=== PATIENT | male | born 1970 | race Caucasian/White ===

== ENCOUNTER 2018-06-11 20:17 | Inpatient (IN) | payer MEDICAID, OTHER ==
[2018-06-11 20:32] LABS: ADD MAN DIFF? NO
[2018-06-11 20:34] LABS: WHITE BLOOD COUNT 9.4 10^3/ul (4.8-10.8)
[2018-06-11 20:34] LABS: BASOPHIL # 0.1 10^3/ul (0.0-0.1); BASOPHILS % 0.7 % (0.0-2.0); EOSINOPHILS # 0.6 10^3/ul (0.0-0.5); EOSINOPHILS % 6.8 % (0.0-7.0); HEMATOCRIT 34.1 % (42.0-52.0); HEMOGLOBIN 12.3 g/dl (14.0-18.0); LYMPHOCYTES # 2.4 10^3/ul (0.8-2.9); LYMPHOCYTES % 25.3 % (15.0-51.0); MEAN CORPUSCULAR HEMOGLOBIN 31.3 pg (29.0-33.0); MEAN CORPUSCULAR HGB CONC 36.1 g/dl (32.0-37.0); MEAN CORPUSCULAR VOLUME 86.8 fl (82.0-101.0); MEAN PLATELET VOLUME 9.1 fl (7.4-10.4); MONOCYTE # 0.7 10^3/ul (0.3-0.9); NEUTROPHIL # 5.6 10^3/ul (1.6-7.5); NEUTROPHILS % 59.6 % (39.0-77.0); PLATELET COUNT 341 10^3/UL (140-415); RED BLOOD COUNT 3.93 10^6/ul (4.70-6.10); RED CELL DISTRIBUTION WIDTH 11.4 % (11.5-14.5)
[2018-06-11 20:50] LABS: ANION GAP 10 (5-13); BLOOD UREA NITROGEN 13 mg/dl (7-20); CALCIUM 9.2 mg/dl (8.4-10.2); CARBON DIOXIDE 25 mmol/L (21-31); CHLORIDE 92 mmol/L (97-110); CREATININE 1.06 mg/dl (0.61-1.24); Estimated GFR > 60 mL/min (>60); GLUCOSE 147 mg/dl (70-220); POTASSIUM 3.6 mmol/L (3.5-5.1); SODIUM 127 mmol/L (135-144)
[2018-06-11 20:52] LABS: CHOL/HDL RATIO 3.9 RATIO; HDL CHOLESTEROL 43 mg/dl (27-67); LDL CHOLESTEROL,CALCULATED 99 mg/dl; TRIGLYCERIDES 132 mg/dl (0-149)
[2018-06-11 20:52] LABS: CHOLESTEROL 168 mg/dl (100-200)
[2018-06-11 21:02] LABS: TROPONIN-I < 0.012 ng/ml (0.000-0.120)
[2018-06-11 21:10] LABS: INR 1.04; PROTIME 13.7 Sec (11.9-14.9); PT RATIO 1.1
[2018-06-11 21:11] LABS: PARTIAL THROMBOPLASTIN TIME 26.6 Sec (23.0-35.0)
[2018-06-11 21:14] LABS: HEMOGLOBIN A1C 5.2 % (0-5.9)
[2018-06-11] MEDS ORDERED: ONDANSETRON 4 MG INJ IV (23:00)
[2018-06-11] MEDS ORDERED: ACETAMINOPHEN 325 MG TAB PO (23:00)
[2018-06-12 03:55] LABS: CREATINE KINASE 84 IU/L (23-200)
[2018-06-12 04:09] LABS: CK INDEX 0.3; CK-MB < 0.22 ng/ml (0.0-2.4); TROPONIN-I < 0.012 ng/ml (0.000-0.120)
[2018-06-12] MEDS ORDERED: NACL 0.9% 3 ML SYG IV (04:30)
[2018-06-12] MEDS ORDERED: ONDANSETRON 4 MG INJ IV (04:30)
[2018-06-12] MEDS ORDERED: ACETAMINOPHEN 325 MG TAB PO (04:30)
[2018-06-12] MEDS ORDERED: ALBUTEROL/IPRATROPIUM (NEB) 3 ML AMP HHN (04:30)
[2018-06-12] MEDS ORDERED: NITROGLYCERIN (SL) 0.4 MG TAB SL (04:30)
[2018-06-12 06:22] LABS: ADD MAN DIFF? NO
[2018-06-12 06:28] LABS: BASOPHIL # 0.1 10^3/ul (0.0-0.1); BASOPHILS % 0.7 % (0.0-2.0); EOSINOPHILS # 0.7 10^3/ul (0.0-0.5); EOSINOPHILS % 8.7 % (0.0-7.0); HEMATOCRIT 34.4 % (42.0-52.0); HEMOGLOBIN 12.5 g/dl (14.0-18.0); LYMPHOCYTES # 2.4 10^3/ul (0.8-2.9); LYMPHOCYTES % 32.1 % (15.0-51.0); MEAN CORPUSCULAR HEMOGLOBIN 31.4 pg (29.0-33.0); MEAN CORPUSCULAR HGB CONC 36.3 g/dl (32.0-37.0); MEAN CORPUSCULAR VOLUME 86.4 fl (82.0-101.0); MEAN PLATELET VOLUME 9.3 fl (7.4-10.4); MONOCYTE # 0.7 10^3/ul (0.3-0.9); MONOCYTES % 9.1 % (0.0-11.0); NEUTROPHIL # 3.7 10^3/ul (1.6-7.5); NEUTROPHILS % 48.9 % (39.0-77.0); PLATELET COUNT 337 10^3/UL (140-415); RED BLOOD COUNT 3.98 10^6/ul (4.70-6.10); RED CELL DISTRIBUTION WIDTH 11.3 % (11.5-14.5)
[2018-06-12 06:28] LABS: WHITE BLOOD COUNT 7.5 10^3/ul (4.8-10.8)
[2018-06-12 06:59] LABS: HEMOGLOBIN A1C 5.2 % (0-5.9)
[2018-06-12 07:08] LABS: CK-MB < 0.22 ng/ml (0.0-2.4); TROPONIN-I < 0.012 ng/ml (0.000-0.120)
[2018-06-12 07:11] LABS: ALANINE AMINOTRANSFERASE 34 IU/L (13-69); ALBUMIN 4.2 g/dl (3.3-4.9); ALBUMIN/GLOBULIN RATIO 1.27; ALKALINE PHOSPHATASE 74 IU/L (42-121); ANION GAP 9 (5-13); ASPARTATE AMINO TRANSFERASE 31 IU/L (15-46); BILIRUBIN,INDIRECT 0.6 mg/dl (0-1.1); BILIRUBIN,TOTAL 0.6 mg/dl (0.2-1.3); BLOOD UREA NITROGEN 11 mg/dl (7-20); CALCIUM 9.3 mg/dl (8.4-10.2); CARBON DIOXIDE 25 mmol/L (21-31); CHLORIDE 95 mmol/L (97-110); CHOL/HDL RATIO 4.9 RATIO; CHOLESTEROL 182 mg/dl (100-200); CK INDEX 0.3; CREATINE KINASE 85 IU/L (23-200); CREATININE 0.96 mg/dl (0.61-1.24); Estimated GFR > 60 mL/min (>60); GLUCOSE 96 mg/dl (70-220); HDL CHOLESTEROL 37 mg/dl (27-67); LDL CHOLESTEROL,CALCULATED 113 mg/dl; POTASSIUM 3.8 mmol/L (3.5-5.1); SODIUM 129 mmol/L (135-144); TOTAL PROTEIN 7.5 g/dl (6.1-8.1); TRIGLYCERIDES 160 mg/dl (0-149)
[2018-06-12] MEDS: SOD CHLORIDE 0.9% 1,000 ML IV (08:57)
[2018-06-12] MEDS: ASPIRIN 81 MG TAB PO (08:57)
[2018-06-12] MEDS: LISINOPRIL 20 MG TAB PO (08:57)
[2018-06-12] MEDS: LORATADINE 10 MG TAB PO (08:57)
[2018-06-12] MEDS: HEPARIN 5,000 UNIT/1 ML VIAL SC ×2 (09:53→21:00)
[2018-06-12 10:36] LABS: TROPONIN-I < 0.012 ng/ml (0.000-0.120)
[2018-06-12 11:42] LABS: AMPHETAMINE/METHAMPHETAMINE Negative (NEGATIVE); BARBITURATES Negative (NEGATIVE); BENZODIAZEPINES Negative (NEGATIVE); CANNABINOIDS Negative (NEGATIVE); COCAINE Negative (NEGATIVE); OPIATES Negative (NEGATIVE)
[2018-06-12 11:46] LABS: POTASSIUM,URINE RANDOM 11.6 mmol/L (25-125)
[2018-06-12 11:46] LABS: SODIUM,URINE RANDOM 18 mmol/L (30-90)
[2018-06-12] MEDS: POTASSIUM CHLORIDE 10 MEQ in SOD CHLORIDE 0.9% 1,000 ML IV (16:29)
[2018-06-12] MEDS: METOPROLOL 25 MG TAB PO (20:45)
[2018-06-13 05:44] LABS: ADD MAN DIFF? NO
[2018-06-13 05:45] LABS: BASOPHIL # 0.1 10^3/ul (0.0-0.1); BASOPHILS % 0.7 % (0.0-2.0); EOSINOPHILS # 0.7 10^3/ul (0.0-0.5); EOSINOPHILS % 9.8 % (0.0-7.0); HEMATOCRIT 33.3 % (42.0-52.0); HEMOGLOBIN 11.9 g/dl (14.0-18.0); LYMPHOCYTES # 2.8 10^3/ul (0.8-2.9); LYMPHOCYTES % 42.1 % (15.0-51.0); MEAN CORPUSCULAR HEMOGLOBIN 31.1 pg (29.0-33.0); MEAN CORPUSCULAR HGB CONC 35.7 g/dl (32.0-37.0); MEAN CORPUSCULAR VOLUME 86.9 fl (82.0-101.0); MEAN PLATELET VOLUME 9.7 fl (7.4-10.4); MONOCYTE # 0.8 10^3/ul (0.3-0.9); MONOCYTES % 11.6 % (0.0-11.0); NEUTROPHIL # 2.4 10^3/ul (1.6-7.5); NEUTROPHILS % 35.4 % (39.0-77.0); PLATELET COUNT 325 10^3/UL (140-415); RED BLOOD COUNT 3.83 10^6/ul (4.70-6.10); RED CELL DISTRIBUTION WIDTH 11.8 % (11.5-14.5)
[2018-06-13 05:45] LABS: WHITE BLOOD COUNT 6.8 10^3/ul (4.8-10.8)
[2018-06-13 06:14] LABS: CHOLESTEROL 161 mg/dl (100-200)
[2018-06-13 06:14] LABS: CHOL/HDL RATIO 3.8 RATIO; HDL CHOLESTEROL 42 mg/dl (27-67); LDL CHOLESTEROL,CALCULATED 88 mg/dl; TRIGLYCERIDES 156 mg/dl (0-149)
[2018-06-13 06:23] LABS: ANION GAP 6 (5-13); BLOOD UREA NITROGEN 13 mg/dl (7-20); CARBON DIOXIDE 26 mmol/L (21-31); CHLORIDE 102 mmol/L (97-110); CREATININE 1.09 mg/dl (0.61-1.24); Estimated GFR > 60 mL/min (>60); GLUCOSE 95 mg/dl (70-220); MAGNESIUM 2.2 mg/dl (1.7-2.5); PHOSPHORUS 3.5 mg/dl (2.5-4.9); POTASSIUM 4.1 mmol/L (3.5-5.1); SODIUM 134 mmol/L (135-144)
[2018-06-13] MEDS: POTASSIUM CHLORIDE 10 MEQ in SOD CHLORIDE 0.9% 1,000 ML IV (06:55)
[2018-06-13] MEDS: LORATADINE 10 MG TAB PO (08:12)
[2018-06-13] MEDS: LISINOPRIL 20 MG TAB PO (08:12)
[2018-06-13] MEDS: ASPIRIN 81 MG TAB PO (08:12)
[2018-06-13] MEDS: METOPROLOL 25 MG TAB PO (08:12)
[2018-06-13] MEDS: HEPARIN 5,000 UNIT/1 ML VIAL SC (08:17)
== END 2018-06-13 16:26 | disposition home or self-care (01) | DRG 313 ==
LOC: 6WM 22:35 → E/R 20:17
DX: R07.89 Other chest pain (principal); E87.1 Hypo-osmolality and hyponatremia; I10 Essential (primary) hypertension; E78.5 Hyperlipidemia, unspecified; J45.909 Unspecified asthma, uncomplicated; D64.9 Anemia, unspecified; F41.9 Anxiety disorder, unspecified
CPT/HCPCS: 36415; 70450; 70552; 71045; 80048; 80053; 80061; 80307; 82436; 82550; 82553; 83036; 83735; 84100; 84133; 84300; 84443; 84484; 85025; 85610; 85730; 92610; 93005; 93306; 99285-25